=== PATIENT | male | born 1980 | race Caucasian/White ===

== ENCOUNTER 2020-07-05 18:28 | Emergency (ER) | payer OTHER ==
[~2020-07-05] VITALS: Ht 177.8 cm; Wt 110.7 kg
[2020-07-05] MEDS ORDERED: ONDANSETRON HCL/PF 4 MG/2 ML VIAL IVP ONE (19:00)
[2020-07-05] MEDS ORDERED: ONDANSETRON HCL/PF 4 MG/2 ML VIAL ONE (19:00)
[2020-07-05] MEDS ORDERED: MORPHINE SULFATE INJ 2 MG/ML DISP.SYRIN IV ONE (19:00)
[2020-07-05] MEDS ORDERED: MORPHINE SULFATE INJ 4 MG/ML DISP.SYRIN ONE (19:01)
[2020-07-05 19:08] LABS: BASOPHILS % (AUTO) 0.5 % (0.0-2.0); HEMATOCRIT 44 % (39-51); HEMOGLOBIN 14.8 g/dL (13.5-17.5); LYMPHOCYTES # (AUTO) 0.8 /CMM (0.8-4.8); LYMPHOCYTES % (AUTO) 12.4 % (20.0-44.0); MEAN CORPUSCULAR HGB CONC 34 g/dl (31.0-36.0); MEAN CORPUSCULAR VOLUME 86 fL (80-96); MONOCYTES # (AUTO) 0.3 /CMM (0.1-1.30); MONOCYTES % (AUTO) 4.2 % (2.0-12.0); NEUTROPHILS # (AUTO) 5.4 /CMM (1.8-8.9); NEUTROPHILS % (AUTO) 82.9 % (43.0-81.0); PLATELET COUNT (AUTO) 198 /CMM (150-450); RED BLOOD CELL COUNT(AUTO) 5.13 MIL/uL (4.5-6.0); WHITE BLOOD COUNT (AUTO) 6.5 K/uL (4.3-11.0)
--- NOTE | 2020-07-05 19:09 | NUR ---
the patient was [facility] for fever, possible COVID symptoms.
--- NOTE | 2020-07-05 19:10 | NUR ---
labs drawn, and hep lock started
--- NOTE | 2020-07-05 19:11 | NUR ---
pain meds and anti emetics given as ordered
[2020-07-05 19:20] LABS: CALCIUM, SERUM 8.1 mg/dL (8.5-10.1); CREATININE 1.8 mg/dL (0.6-1.3); POTASSIUM 4.1 mmol/L (3.5-5.1)
[2020-07-05 19:26] LABS: ALBUMIN 3.1 g/dL (3.4-5.0); BILIRUBIN,DIRECT 0.2 mg/dL (0.0-0.2); BILIRUBIN,TOTAL 0.5 mg/dL (0.2-1.0); TOTAL PROTEIN, SERUM 7.2 g/dL (6.4-8.2)
--- NOTE | 2020-07-05 19:33 | NUR ---
lab called regarding positive covid result.
--- NOTE | 2020-07-05 19:59 | NUR ---
radiology at bedside for cxr
[2020-07-05] MEDS ORDERED: IV NS 0.9% 1,000 ML IV ONE (20:00)
[2020-07-05 20:51] VITALS: BP 142/77
--- NOTE | 2020-07-05 20:51 | NUR ---
pt cleared for discharge per dr. aguilar. pt received discharge instructions. pt verbalized understanding. pt ambulatory with steady gait. IV removed. Catheter intact and site benign. Pressure and 4x4 applied to site. No bleeding noted.
[2020-07-11] MEDS ORDERED: DEXA6TAB6 PO (16:54)
[2020-07-11] MEDS ORDERED: ZINC220T4 PO (16:54)
[2020-07-11] MEDS ORDERED: CHOL500062 PO (16:54)
== END 2020-07-05 20:52 | disposition home or self-care (01) ==
LOC: ER 18:32
DX: U07.1 COVID-19 (principal); Z90.5 Acquired absence of kidney; N17.9 Acute kidney failure, unspecified; K40.90 Unilateral inguinal hernia, without obstruction or gangrene, not specified as recurrent; D35.02 Benign neoplasm of left adrenal gland; D35.01 Benign neoplasm of right adrenal gland; R91.8 Other nonspecific abnormal finding of lung field; K42.9 Umbilical hernia without obstruction or gangrene; R03.0 Elevated blood-pressure reading, without diagnosis of hypertension
CPT/HCPCS: 36415; 71045; 74176; 80048; 80076; 83690; 85025; 87426; 96361; 96374; 96375; 99285; C9803; J2270; J2405; J7030

== ENCOUNTER 2020-07-09 13:56 | Inpatient (IN) | payer OTHER ==
[~2020-07-09] VITALS: Ht 177.8 cm; Wt 108.9 kg
--- NOTE | 2020-07-09 14:15 | NUR ---
[id number] C/O SOB, BODY ACHES, FEVER, CONFIRMED COVID +. VS [facility]. HOOKED ON MONITOR. SEEN BY
[2020-07-09 15:34] LABS: BASOPHILS % (AUTO) 0.4 % (0.0-2.0); EOSINOPHILS % (AUTO) 0.3 % (0.0-6.0); HEMATOCRIT 47 % (39-51); HEMOGLOBIN 15.3 g/dL (13.5-17.5); LYMPHOCYTES % (AUTO) 15.3 % (20.0-44.0); MEAN CORPUSCULAR HGB CONC 33 g/dl (31.0-36.0); MEAN CORPUSCULAR VOLUME 88 fL (80-96); MONOCYTES # (AUTO) 0.7 /CMM (0.1-1.30); MONOCYTES % (AUTO) 11.3 % (2.0-12.0); NEUTROPHILS # (AUTO) 4.6 /CMM (1.8-8.9); NEUTROPHILS % (AUTO) 72.7 % (43.0-81.0); PLATELET COUNT (AUTO) 369 /CMM (150-450); RED BLOOD CELL COUNT(AUTO) 5.32 MIL/uL (4.5-6.0); WHITE BLOOD COUNT (AUTO) 6.4 K/uL (4.3-11.0)
[2020-07-09 15:43] LABS: CALCIUM, SERUM 8.7 mg/dL (8.5-10.1); CARBON DIOXIDE 29 mmol/L (21-32); CHLORIDE 103 mmol/L (98-107); CREATININE 1.4 mg/dL (0.6-1.3); GLUCOSE 110 mg/dL (74-106); POTASSIUM 4.4 mmol/L (3.5-5.1); SODIUM SERUM 141 mmol/L (136-145); UREA NITROGEN, BLOOD 17 mg/dL (7-18)
[2020-07-09 15:57] LABS: ALANINE AMINOTRANSFERASE 93 U/L (12-78); ALBUMIN 2.7 g/dL (3.4-5.0); ALKALINE PHOSPHATASE 56 U/L (46-116); ASPARTATE AMINOTRANSFERASE 59 U/L (15-37); B-TYPE NATRIURETIC PEPTIDE 110 PG/ML (0-125); BILIRUBIN,TOTAL 0.7 mg/dL (0.2-1.0); TOTAL PROTEIN, SERUM 7.8 g/dL (6.4-8.2)
[2020-07-09] MEDS ORDERED: DEXAMETHASONE SOD PHOSPHATE 10 MG/ML VIAL IV ONE (16:30)
[2020-07-09 16:32] LABS: BILIRUBIN,URINE SMALL (NEGATIVE); COLOR,URINE DARK YELLOW (YELLOW); LEUKOCYTE ESTERASE ,URINE Negative (NEGATIVE); NITRITE, URINE Negative (NEGATIVE); PROTEIN,URINE 100 mg/dl (NEGATIVE); UGLUCOSE Negative (NEGATIVE)
[2020-07-09] MEDS ORDERED: DEXAMETHASONE SOD PHOSPHATE 10 MG/ML VIAL ONE (16:33)
[2020-07-09 16:34] LABS: UROBILINOGEN,URINE 0.2 EU/dL (0.2)
[2020-07-09 16:38] LABS: RBC,URINE 0-2 /HPF (0-2); WBC,URINE 0-2 /HPF (0-3)
[2020-07-09 16:39] LABS: BACTERIA,URINE None seen /HPF (None Seen); SQUAMOUS EPITHELIAL CELL,UR Few /HPF (None Seen)
[2020-07-09] MEDS ORDERED: MAG HYDROX/AL HYDROX/SIMETH 30 ML UDC PO PRN (18:30)
[2020-07-09] MEDS ORDERED: Z GUARD REMEDY 2 OZ OINT TP PRN (18:30)
[2020-07-09] MEDS ORDERED: ACETAMINOPHEN 325 MG TABLET PO PRN (18:30)
[2020-07-09] MEDS ORDERED: ONDANSETRON HCL/PF 4 MG/2 ML VIAL IVP PRN (18:30)
[2020-07-09] MEDS ORDERED: HYDROCODONE/APAP 5/325MG TABLET PO PRN (18:30)
[2020-07-09] MEDS ORDERED: MAGNESIUM HYDROXIDE 30 ML UDC PO PRN (18:30)
--- NOTE | 2020-07-09 18:36 | NUR ---
PT AAOX4. PLACED IN BED 17 ON MONITOR AND PULSE OX. SAT 92% ON ROOM AIR. PLACED ON 2L NC SAT 96%. VSS.
[2020-07-09] MEDS ORDERED: CEFTRIAXONE 1GM BAG (ER ONLY) 50 ML IV ONE (18:49)
[2020-07-09] MEDS ORDERED: CEFTRIAXONE 1 G in IV D5W 50 ML IV ONE (19:00)
[2020-07-09 19:58] LABS: FERRITIN 2257 ng/mL (8-388)
[2020-07-09] MEDS ORDERED: HEPARIN SODIUM, PORCINE 5000 UNITS/1 ML VIAL SQ SCH (21:00)
[2020-07-09] MEDS ORDERED: HEPARIN SODIUM, PORCINE 5000 UNITS/1 ML VIAL ONE (21:15)
[2020-07-09] MEDS ORDERED: ZOLPIDEM TARTRATE 5 MG TABLET ONE (21:37)
[2020-07-09] MEDS: ZOLPIDEM TARTRATE 5 MG TABLET PO PRN (21:43)
--- NOTE | 2020-07-09 23:05 | NUR ---
PT REMAINS ON 2L NC. PT ON STRIPE MARKER AND PULSE OX. SAT 95%. VSS.
--- NOTE | 2020-07-10 02:58 | NUR ---
PT AMBULATED TO THE RESTROOM.
--- NOTE | 2020-07-10 06:15 | NUR ---
PT REMAINS ON 2L NC, SAT 95-97%. PT PROVIDED WITH MORE BLANKETS. VSS.
[2020-07-10 06:27] LABS: BASOPHILS % (AUTO) 0.2 % (0.0-2.0); HEMATOCRIT 44 % (39-51); HEMOGLOBIN 14.5 g/dL (13.5-17.5); LYMPHOCYTES # (AUTO) 0.8 /CMM (0.8-4.8); MEAN CORPUSCULAR HGB CONC 33 g/dl (31.0-36.0); MEAN CORPUSCULAR VOLUME 88 fL (80-96); MONOCYTES # (AUTO) 0.3 /CMM (0.1-1.30); MONOCYTES % (AUTO) 9.6 % (2.0-12.0); NEUTROPHILS # (AUTO) 2.2 /CMM (1.8-8.9); NEUTROPHILS % (AUTO) 67.2 % (43.0-81.0); PLATELET COUNT (AUTO) 250 /CMM (150-450); RED BLOOD CELL COUNT(AUTO) 5.01 MIL/uL (4.5-6.0); WHITE BLOOD COUNT (AUTO) 3.3 K/uL (4.3-11.0)
[2020-07-10 07:06] LABS: THYROID STIMULATING HORMONE 0.517 uIU/mL (0.358-3.74)
[2020-07-10 07:11] LABS: CALCIUM, SERUM 9.1 mg/dL (8.5-10.1); CREATININE 1.2 mg/dL (0.6-1.3); PHOSPHORUS 3.8 mg/dL (2.5-4.9); POTASSIUM 4.6 mmol/L (3.5-5.1)
--- NOTE | 2020-07-10 07:28 | NUR ---
REPROT GIVEN TO TERESA MACKEY FOR YANIRA
[2020-07-10] MEDS ORDERED: PANTOPRAZOLE 40 MG TABLET.DR PO SCH (07:30)
[2020-07-10] MEDS ORDERED: PANTOPRAZOLE 40 MG TABLET.DR PO ONE (08:18)
[2020-07-10] MEDS ORDERED: DEXAMETHASONE SOD PHOSPHATE 10 MG/ML VIAL ONE (08:45)
[2020-07-10] MEDS: DEXAMETHASONE SOD PHOSPHATE 10 MG/ML VIAL IV SCH (09:03)
[2020-07-10] MEDS ORDERED: HEPARIN SODIUM, PORCINE 5000 UNITS/1 ML VIAL ONE ×2 (09:45→21:07)
[2020-07-10] MEDS: HEPARIN SODIUM, PORCINE 5000 UNITS/1 ML VIAL SQ SCH ×2 (09:53→21:10)
[2020-07-10 10:53] LABS: ALBUMIN 2.6 g/dL (3.4-5.0); BILIRUBIN,TOTAL 0.4 mg/dL (0.2-1.0); CALCIUM, SERUM 9.1 mg/dL (8.5-10.1); CREATININE 1.2 mg/dL (0.6-1.3); POTASSIUM 4.9 mmol/L (3.5-5.1); TOTAL PROTEIN, SERUM 7.6 g/dL (6.4-8.2)
--- NOTE | 2020-07-10 15:06 | NUR ---
pt up amb to br back to bed heparin given per md order
--- NOTE | 2020-07-10 20:14 | NUR ---
PT RESTING COMFORTABLY. PT AMBULATED TO THE RESTROOM AND BACK. ON ROOM AIR SAT 88%. PLACED ON 3L NC SAT 92-94%.
[2020-07-10] MEDS ORDERED: ZOLPIDEM TARTRATE 5 MG TABLET ONE (22:24)
[2020-07-10] MEDS: ZOLPIDEM TARTRATE 5 MG TABLET PO PRN (22:27)
--- NOTE | 2020-07-10 22:43 | NUR ---
PT PROVIDED WITH BLANKETS AND PLACED ON MONITOR. WILL CONTINUE TO MONITOR.
--- NOTE | 2020-07-11 00:47 | NUR ---
PT ASLEEP, VITALS STABLE.
--- NOTE | 2020-07-11 04:50 | NUR ---
PT AMBULATED TO THE RESTROOM VSS.
--- NOTE | 2020-07-11 06:49 | NUR ---
PT REMAINS ASLEEP ,VSS.
[2020-07-11] MEDS ORDERED: PANTOPRAZOLE 40 MG TABLET.DR PO SCH (07:30)
[2020-07-11 07:50] LABS: BASOPHILS % (AUTO) 0.1 % (0.0-2.0); HEMATOCRIT 42 % (39-51); HEMOGLOBIN 13.8 g/dL (13.5-17.5); LYMPHOCYTES % (AUTO) 12.5 % (20.0-44.0); MEAN CORPUSCULAR HGB CONC 33 g/dl (31.0-36.0); MEAN CORPUSCULAR VOLUME 87 fL (80-96); MONOCYTES # (AUTO) 0.8 /CMM (0.1-1.30); MONOCYTES % (AUTO) 9.5 % (2.0-12.0); NEUTROPHILS # (AUTO) 6.3 /CMM (1.8-8.9); NEUTROPHILS % (AUTO) 77.9 % (43.0-81.0); PLATELET COUNT (AUTO) 377 /CMM (150-450); RED BLOOD CELL COUNT(AUTO) 4.79 MIL/uL (4.5-6.0); WHITE BLOOD COUNT (AUTO) 8.1 K/uL (4.3-11.0)
[2020-07-11] MEDS ORDERED: HEPARIN SODIUM, PORCINE 5000 UNITS/1 ML VIAL ONE (08:05)
[2020-07-11] MEDS ORDERED: PANTOPRAZOLE 40 MG TABLET.DR PO ONE (08:05)
[2020-07-11] MEDS ORDERED: DEXAMETHASONE SOD PHOSPHATE 10 MG/ML VIAL ONE (08:05)
[2020-07-11] MEDS: DEXAMETHASONE SOD PHOSPHATE 10 MG/ML VIAL IV SCH (08:14)
[2020-07-11 08:20] LABS: CALCIUM, SERUM 8.9 mg/dL (8.5-10.1); CREATININE 1.2 mg/dL (0.6-1.3); MAGNESIUM 2.4 mg/dL (1.8-2.4); PHOSPHORUS 3.5 mg/dL (2.5-4.9); POTASSIUM 4.5 mmol/L (3.5-5.1)
[2020-07-11] MEDS: HEPARIN SODIUM, PORCINE 5000 UNITS/1 ML VIAL SQ SCH (08:24)
--- NOTE | 2020-07-11 09:00 | NUR ---
PATIENT A/OX4, BREATHING EVEN AND UNLABORED, NO SOB NOTED.
[2020-07-11 09:09] LABS: C-REACTIVE PROTEIN 4.6 mg/dL (0.0-0.9)
--- NOTE | 2020-07-11 15:31 | NUR ---
PATIENT DENIES SOB, SPO2 93-94% ON ROOM AIR. PATIENT DENIES SOB DURING AMBULATION.
--- NOTE | 2020-07-11 15:43 | NUR ---
SPO2 SHOWS 93-95% DURING AMBULATION, ON ROOM AIR.
[2020-07-11] MEDS ORDERED: ZINC220T4 PO (16:54)
[2020-07-11] MEDS ORDERED: DEXA6TAB6 PO (16:54)
[2020-07-11] MEDS ORDERED: CHOL500062 PO (16:54)
--- NOTE | 2020-07-11 17:22 | NUR ---
PATIENT A/OX4, BREATHING EVEN AND UNLABORED, NO SOB NOTED. AMBULATORY WITH STEADY GAIT. NEEDS ATTENDED. IV removed. Catheter intact and site benign. Pressure and 4x4 applied to site. No bleeding noted.Patient discharged to home in stable condition. Written and verbal after care instructions given. Patient verbalizes understanding of instruction.
[2020-07-11 17:23] VITALS: BP 145/91
== END 2020-07-11 17:25 | disposition home or self-care (01) | DRG 137 ==
LOC: ER 13:59 → TRANSITION 20:42 → OBSVTOIN 20:42 → TRANSITION 07-11 17:24
PROVIDERS: ADMIT Student in an Organized Health Care Education/Training Program; ATTEND Nurse Practitioner Acute Care
PROC: XW13325 Transfusion of Convalescent Plasma (Nonautologous) into Peripheral Vein, Percutaneous Approach, New Technology Group 5 (ICD-10-PCS; principal; 2020-07-10)
DX: U07.1 COVID-19 (principal); J12.89 Other viral pneumonia; J96.01 Acute respiratory failure with hypoxia; D35.01 Benign neoplasm of right adrenal gland; D35.02 Benign neoplasm of left adrenal gland; E44.0 Moderate protein-calorie malnutrition; E66.9 Obesity, unspecified; K40.90 Unilateral inguinal hernia, without obstruction or gangrene, not specified as recurrent; K76.0 Fatty (change of) liver, not elsewhere classified; N17.0 Acute kidney failure with tubular necrosis; E87.2 Acidosis; N18.9 Chronic kidney disease, unspecified; Z90.5 Acquired absence of kidney; Z87.891 Personal history of nicotine dependence; W34.00XS Accidental discharge from unspecified firearms or gun, sequela
CPT/HCPCS: 36415; 71045-TC; 80048-TC; 80053-TC; 80061-TC; 81001; 82728-TC; 83605-TC; 83615-TC; 83735-TC; 83880; 84100-TC; 84443-TC; 84484-TC; 85025-TC; 85378-TC; 86140-TC; 86850-TC; 87040-TC; 87081-TC; G0378; J0696; J1100; J1644; J7050; J7060; P9017-BL